=== PATIENT | male | born 1930 | race Caucasian/White ===

== ENCOUNTER → 2017-03-23 | Outpatient (CLI) | payer MEDICARE | END | disposition home or self-care (01) | LOC: OIH 16:18 | PROVIDERS: ATTEND Internal Medicine | DX: J18.0 Bronchopneumonia, unspecified organism (principal); M47.895 Other spondylosis, thoracolumbar region | CPT/HCPCS: 71046 ==

== ENCOUNTER → 2017-03-31 | Outpatient (CLI) | payer MEDICARE | END | disposition home or self-care (01) | LOC: RAH 10:14 | PROVIDERS: ATTEND Internal Medicine | DX: J84.10 Pulmonary fibrosis, unspecified (principal) | CPT/HCPCS: 71250 ==